=== PATIENT | male | born 1960 | race Caucasian/White ===

== ENCOUNTER 2016-12-28 17:57 | Observation (INO) | payer OTHER ==
[~2016-12-28] VITALS: Ht 185.4 cm; Wt 110.0 kg
[~2016-12-28 17:57] MED LIST: ADVAIR 100/501 DISK IH; ALLOPURINOL100 MG PO; ASPIR 8181 M1 PO; BENTYL20 MG PO; COMPAZINE10 MG PO; COUMADIN,JANTOVE5 MG PO; COUMADIN6 MG PO; COUMADIN7.5 MG PO; CRESTOR10 MG PO; Cytotec PO; FAMOTIDINE40 MG PO; FLEXERIL5 MG PO; GABAPENTIN300 MG PO; ISOSORBIDE MONO30 MG PO; LASIX20 MG PO; LIPITOR20 MG PO; LISINOPRIL10 MG PO; METFORMIN HCL500 M1 PO; METOPROLOL SUCC50 MG PO; MORPHINE SULFAT30 M5 PO; MULTIVITAMIN1 EAC2 PO; NEURONTIN300 MG PO; NITROSTAT0.4 MG SL; OMEPRAZOLE10 M1; OMEPRAZOLE20 MG PO; OMEPRAZOLE40 M1 PO; PRAVASTATIN SOD20 MG PO; PRAVASTATIN SOD40 MG PO; PRILOSEC40 MG PO; RANITIDINE HCL150 M1 PO; SALINE NASAL SP45 ML BOTH NARES; SERTRALINE HCL25 MG PO; SOTALOL120 MG PO; TYLENOL EXTRA500 MG PO; TYLENOL REGULA325 MG PO; Tylenol Extra Streng PO; VENTOLIN HFA18 GM IH; VITAMIN D1000 INTUN PO; VITAMIN E400 UNIT PO; VOLTAREN75 MG PO; Voltaren PO; Zyloprim PO
[2016-12-28 18:43] LABS: HEMATOCRIT 38.9 % (38.0-50.0); MCH 31.5 PG (29.0-34.0); MCHC 33.7 G/DL (30.0-36.0); MCV 93.5 FL (86-99); MEAN PLAT.VOLUME 10.4 uM^3 (9.0-12.4); PLATELET COUNT 233 K/uL (156-360); RBC DIS.WIDTH-CV 11.7 % (11.8-14.6); RBC DIS.WIDTH-SD 40.2 % (39-53); RED BLOOD COUNT 4.16 M/uL (4.00-5.50)
[2016-12-28 18:53] LABS: CHLORIDE 109 mEq/L (99-109); SODIUM 138 mEq/L (136-147)
[2016-12-28 18:54] LABS: GLUCOSE 104 mg/dL (70-99)
[2016-12-28 18:56] LABS: ANION GAP 12 MEQ/L (2-14)
[2016-12-28 18:58] LABS: GFR ESTIMATE (CALCULATED) > 59 mL/min/
[2016-12-28 18:59] LABS: UREA NITROGEN (BUN) 23 mg/dL (9-23)
[2016-12-28 19:04] LABS: TROP-I INTERPRETATION NEGATIVE; TROPONIN-I < 0.01 ng/mL (0.0-0.30)
[2016-12-28] MEDS ORDERED: OMEPRAZOLE20 MG PO (21:51)
[2016-12-28] MEDS ORDERED: SERTRALINE HCL50 MG PO (21:52)
[2016-12-29 01:00] VITALS: BP 112/78
[2016-12-29 01:24] LABS: INTER. NORMALIZED RATIO 3.3
[2016-12-29 04:00] VITALS: BP 106/64
[2016-12-29 06:18] LABS: TROP-I INTERPRETATION NEGATIVE; TROPONIN-I < 0.01 ng/mL (0.0-0.30)
[2016-12-29 07:15] LABS: INTER. NORMALIZED RATIO 3.1; PROTHROMBIN TIME 35.4 SEC (10.2-12.9)
[2016-12-29 09:40] VITALS: BP 107/70
[2016-12-29 12:00] VITALS: BP 107/61
[2016-12-29 13:37] LABS: TROP-I INTERPRETATION NEGATIVE; TROPONIN-I < 0.01 ng/mL (0.0-0.30)
[2016-12-29 16:00] VITALS: BP 105/70
== END 2016-12-29 18:14 | disposition home or self-care (01) ==
LOC: EME 17:57 → EDOF 21:24 → ENRESERV 21:26 → 5WEST 12-29 00:54
PROVIDERS: Hospitalist; Internal Medicine
DX: R07.89 Other chest pain (principal); R94.31 Abnormal electrocardiogram [ECG] [EKG]; Q23.1 Congenital insufficiency of aortic valve; I71.2 Thoracic aortic aneurysm, without rupture; I48.2 Chronic atrial fibrillation; I10 Essential (primary) hypertension; E78.5 Hyperlipidemia, unspecified; R42 Dizziness and giddiness; R63.4 Abnormal weight loss; Z79.82 Long term (current) use of aspirin; Z79.01 Long term (current) use of anticoagulants; Z87.891 Personal history of nicotine dependence; Z79.84 Long term (current) use of oral hypoglycemic drugs; Z82.3 Family history of stroke; Z82.49 Family history of ischemic heart disease and other diseases of the circulatory system; Z83.3 Family history of diabetes mellitus; Z88.5 Allergy status to narcotic agent
CPT/HCPCS: 71010; 71275; 80048; 84484; 85027; 85610; 93005; 94640; 99202; 99281; 99284; G0378; J2060; J2270; J7030